=== PATIENT | female | born 2000 | race Caucasian/White ===

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

== ENCOUNTER 2020-03-07 17:27 | Outpatient (CLI) | payer MEDICAID ==
[~2020-03-07 17:27] MED LIST changes: +PREN1TAB60 PO
[2020-03-07 17:59] LABS: MICROSCOPIC INDICATED
== END 2020-03-07 18:35 | disposition home or self-care (01) ==
LOC: LDOP 17:27
PROVIDERS: ATTEND Obstetrics & Gynecology
DX: O26.892 Other specified pregnancy related conditions, second trimester (principal); R10.9 Unspecified abdominal pain; Z3A.25 25 weeks gestation of pregnancy
CPT/HCPCS: 81001; 87086; 99201; G0463

== ENCOUNTER 2020-04-06 02:05 | Outpatient (CLI) | payer MEDICAID | END 2020-04-06 02:39 | disposition home or self-care (01) | LOC: LDOP 02:05 | PROVIDERS: ATTEND Obstetrics & Gynecology | DX: O26.893 Other specified pregnancy related conditions, third trimester (principal); R25.2 Cramp and spasm; Z3A.29 29 weeks gestation of pregnancy | CPT/HCPCS: 59025 ==

== ENCOUNTER 2020-05-09 19:31 | Outpatient (CLI) | payer MEDICAID ==
[2020-05-09 19:44] VITALS: BP 98/61
[2020-05-09 20:28] LABS: MICROSCOPIC INDICATED
== END 2020-05-09 21:11 | disposition home or self-care (01) ==
LOC: LDOP 19:31
PROVIDERS: ATTEND Obstetrics & Gynecology
DX: O46.93 Antepartum hemorrhage, unspecified, third trimester (principal); Z3A.33 33 weeks gestation of pregnancy
CPT/HCPCS: 59025; 81001; 87086

== ENCOUNTER 2020-05-27 08:01 | Outpatient (CLI) | payer MEDICAID ==
[~2020-05-27] VITALS: Ht 162.6 cm; Wt 70.5 kg
[2020-05-27 08:18] VITALS: BP 112/59
[2020-05-27 08:38] LABS: MICROSCOPIC NOT IND
[2020-05-27 08:57] LABS: AMPHETAMINE SCREEN, URINE Negative (Negative); BARBITURATE SCREEN, URINE Negative (Negative); BENZODIAZEPINE SCREEN, URINE Negative (Negative); CANNABINOID SCREEN, URINE Negative (Negative); COCAINE SCREEN, URINE Negative (Negative); METHADONE SCREEN, URINE Negative (Negative); OPIATE SCREEN, URINE Negative (Negative)
== END 2020-05-27 09:12 | disposition home or self-care (01) ==
LOC: LDOP 08:01
PROVIDERS: ATTEND Obstetrics & Gynecology
DX: O26.893 Other specified pregnancy related conditions, third trimester (principal); R10.9 Unspecified abdominal pain; Z3A.36 36 weeks gestation of pregnancy
CPT/HCPCS: 59025; 80307; 81003; 87086

== ENCOUNTER 2020-06-16 07:36 | Inpatient (IN) | payer MEDICAID ==
[~2020-06-16] VITALS: Ht 162.6 cm; Wt 73.6 kg
[2020-06-16] MEDS ORDERED: TERBUTALINE 1 MG/ML, 1ML IVPush PRN (08:00)
[2020-06-16] MEDS ORDERED: CALCIUM CARBONATE 500 MG TAB.CHEW PO PRN (08:00)
[2020-06-16] MEDS ORDERED: TERBUTALINE 1 MG/ML, 1ML SQ PRN (08:00)
[2020-06-16] MEDS ORDERED: D5%-LACTATED RINGERS 1,000 ML IV SCH (08:00)
[2020-06-16] MEDS ORDERED: OXYTOCIN 30U/ 0.9% NaCL 500ML 500 ML IV PRN (08:00)
[2020-06-16] MEDS ORDERED: FENTANYL PF 100 MCG/2ML IV PRN (08:00)
[2020-06-16] MEDS ORDERED: ONDANSETRON 2MG/ML, 2ML IVPush PRN (08:00)
[2020-06-16] MEDS ORDERED: OXYTOCIN 30U/ 0.9% NaCL 500ML 500 ML IV ONE (08:00)
[2020-06-16] MEDS ORDERED: LIDOCAINE 1%, 20ML ONE (08:29)
[2020-06-16] MEDS ORDERED: NEWBORN KIT ONE (08:29)
[2020-06-16] MEDS ORDERED: OXYTOCIN 30U/ 0.9% NaCL 500ML 500 ML ONE (08:29)
[2020-06-16] MEDS ORDERED: MISOPROSTOL 200 MCG TABLET ONE (08:29)
[2020-06-16] MEDS ORDERED: PLEASE ENTER HEIGHT AND WEIGHT MC SCH ×2 (08:30→09:00)
[2020-06-16 08:31] LABS: MICROSCOPIC INDICATED
[2020-06-16 08:39] LABS: AMPHETAMINE SCREEN, URINE Negative (Negative); BARBITURATE SCREEN, URINE Negative (Negative); BENZODIAZEPINE SCREEN, URINE Negative (Negative); CANNABINOID SCREEN, URINE Negative (Negative); COCAINE SCREEN, URINE Negative (Negative); METHADONE SCREEN, URINE Negative (Negative); OPIATE SCREEN, URINE Negative (Negative)
[2020-06-16 08:43] LABS: BASOPHILS % (AUTO) 1 % (0-1); EOSINOPHILS % (AUTO) 0 % (1-7); LYMPHOCYTES % (AUTO) 23 % (22-44); MEAN CORPUSCULAR HEMOGLOBIN 29.6 pg (27.0-34.8); MEAN CORPUSCULAR HGB CONC 34.8 g/dL (32.4-35.8); MEAN PLATELET VOLUME 8.6 fL (7.4-10.4); MONOCYTES % (AUTO) 7 % (2-9); NEUTROPHILS % (AUTO) 70 % (42-75); PLATELET COUNT 261 x10^3/uL (130-400); RED BLOOD COUNT 3.14 x10^6/uL (3.82-5.3); RED CELL DISTRIBUTION WIDTH 13.5 % (9.6-15.2)
[2020-06-16 08:45] LABS: MD NO
[2020-06-16 08:53] LABS: ALANINE AMINOTRANSFERASE 16 U/L (12-78); ALBUMIN 2.6 g/dL (3.4-5.0); ANION GAP 9 mmol/L (5-15); CALCIUM 8.5 mg/dL (8.5-10.1); CHLORIDE 110 mmol/L (98-107); CREATININE 0.57 mg/dL (0.55-1.02)
[2020-06-16 08:56] LABS: ALKALINE PHOSPHATASE 160 U/L (45-117); BILIRUBIN,TOTAL 0.3 mg/dL (0.2-1.0); TOTAL PROTEIN 6.4 g/dL (6.4-8.2)
[2020-06-16] MEDS ORDERED: MISOPROSTOL 25 MCG TABLET ONE ×2 (09:34→13:30)
[2020-06-16] MEDS: MISOPROSTOL 25 MCG TABLET VG PRN ×2 (09:38→13:35)
[2020-06-16] MEDS: LACTATED RINGERS 1,000 ML IV SCH ×2 (09:43→11:08)
[2020-06-16] MEDS ORDERED: FENTANYL PF 100 MCG/2ML ONE (14:44)
[2020-06-16] MEDS: FENTANYL PF 100 MCG/2ML IVPush PRN (14:46)
[2020-06-16] MEDS ORDERED: FENTANYL/BUPIV./NS/PF 250 ML EPIDCONT ONE (18:01)
[2020-06-16] MEDS ORDERED: BUPIVACAINE 0.25% ONE (18:01)
[2020-06-16] MEDS ORDERED: LACTATED RINGERS 1,000 ML IVBOLUS PRN (18:30)
[2020-06-16] MEDS ORDERED: FENTANYL/BUPIV./NS/PF 250 ML EPIDCONT SCH (18:30)
[2020-06-16] MEDS ORDERED: EPHEDRINE 50 MG/ML, 1ML IVPush PRN (18:30)
[2020-06-16] MEDS ORDERED: LACTATED RINGERS 1,000 ML IV SCH (18:30)
[2020-06-17] MEDS: FENTANYL PF 100 MCG/2ML IVPush PRN (01:14)
[2020-06-17] MEDS ORDERED: FENTANYL PF 100 MCG/2ML ONE (01:14)
[2020-06-17] MEDS ORDERED: TRANEXAMIC ACID 100 MG/ML, 10ML IV ONE (02:00)
[2020-06-17] MEDS ORDERED: RHOGAM FROM BLOOD BANK 1 NOTE EA IM/IV ONE (02:00)
[2020-06-17] MEDS ORDERED: DIPH,PERTUSS(ACELL),TET VAC/PF NC IM-VACC PRN (02:00)
[2020-06-17] MEDS ORDERED: OXYTOCIN 10 UNITS/ML, 1ML IM PRN (02:00)
[2020-06-17] MEDS ORDERED: SIMETHICONE 80 MG CHEW TAB PO PRN (02:00)
[2020-06-17] MEDS ORDERED: ACETAMINOPHEN 325 MG TABLET PO PRN (02:00)
[2020-06-17] MEDS ORDERED: OXYcodone/APAP 5/325MG TABLET PO PRN (02:00)
[2020-06-17] MEDS ORDERED: MISOPROSTOL 200 MCG TABLET PR PRN (02:00)
[2020-06-17] MEDS ORDERED: METHYLERGONOVINE 0.2 MG/ML IM PRN (02:00)
[2020-06-17] MEDS ORDERED: DOCUSATE 100 MG CAPSULE PO PRN (02:00)
[2020-06-17] MEDS ORDERED: ONDANSETRON 2MG/ML, 2ML IV PRN (02:00)
[2020-06-17] MEDS: OXYTOCIN 30U/ 0.9% NaCL 500ML 500 ML IV SCH ×4 (03:26→06:18)
[2020-06-17 03:45] VITALS: BP 112/67
[2020-06-17] MEDS: IBUPROFEN 600 MG TABLET PO PRN ×3 (06:20→19:58)
[2020-06-17 07:47] VITALS: BP 107/67
[2020-06-17] MEDS: OXYcodone/APAP 5/325MG TABLET PO PRN ×4 (08:14→22:18)
[2020-06-17] MEDS: PRENATAL VIT/IRON/FA 1 EACH TABLET PO SCH (08:14)
[2020-06-17 09:57] LABS: BASOPHILS % (AUTO) 0 % (0-1); EOSINOPHILS % (AUTO) 0 % (1-7); LYMPHOCYTES % (AUTO) 13 % (22-44); MEAN CORPUSCULAR HGB CONC 34.1 g/dL (32.4-35.8); MEAN PLATELET VOLUME 8.8 fL (7.4-10.4); MONOCYTES % (AUTO) 8 % (2-9); NEUTROPHILS % (AUTO) 79 % (42-75); PLATELET COUNT 191 x10^3/uL (130-400); RED CELL DISTRIBUTION WIDTH 13.7 % (9.6-15.2)
[2020-06-17 09:58] LABS: MD NO
[2020-06-17 11:42] VITALS: BP 104/65
[2020-06-17 16:41] VITALS: BP 111/70
[2020-06-17 21:00] VITALS: BP 100/57
[2020-06-18] MEDS: OXYcodone/APAP 5/325MG TABLET PO PRN ×2 (04:56→10:39)
[2020-06-18] MEDS: IBUPROFEN 600 MG TABLET PO PRN ×2 (04:57→12:31)
[2020-06-18 08:30] VITALS: BP 109/71
[2020-06-18] MEDS: PRENATAL VIT/IRON/FA 1 EACH TABLET PO SCH (08:40)
[2020-06-18] MEDS ORDERED: ibuprofen (08:59)
== END 2020-06-18 12:35 | disposition home or self-care (01) | DRG 807 ==
LOC: LDIP 07:47 → 2NW 06-17 03:35
PROVIDERS: ADMIT Obstetrics & Gynecology; ATTEND Obstetrics & Gynecology
PROC: 10E0XZZ Delivery of Products of Conception, External Approach (ICD-10-PCS; principal; 2020-06-17)
PROC: 3E0R3BZ Introduction of Anesthetic Agent into Spinal Canal, Percutaneous Approach (ICD-10-PCS; 2020-06-17)
PROC: 00HU33Z Insertion of Infusion Device into Spinal Canal, Percutaneous Approach (ICD-10-PCS; 2020-06-17)
DX: O69.81X0 Labor and delivery complicated by cord around neck, without compression, not applicable or unspecified (principal); Z37.0 Single live birth; Z3A.39 39 weeks gestation of pregnancy; Z20.822 Contact with and (suspected) exposure to COVID-19; Z83.3 Family history of diabetes mellitus; Z82.3 Family history of stroke; Z80.3 Family history of malignant neoplasm of breast; Z83.6 Family history of other diseases of the respiratory system
CPT/HCPCS: 36415; 80053; 80307; 81001; 85025; 86592; 86762; 86803; 86850; 86900; 87086; 87340; 87635; 87806; G0378; J3010; G0475; J2590; J7120

== ENCOUNTER 2020-07-26 22:14 | Emergency (ER) | payer MEDICAID ==
[~2020-07-26] VITALS: Ht 162.6 cm; Wt 65.0 kg
[~2020-07-26 22:14] MED LIST changes: +ibuprofen
--- NOTE | 2020-07-26 22:27 | NUR ---
Orthostats at triage/ became lightheaded with position changes sittin 96/46 stand: 71 99/60
[2020-07-26 22:50] LABS: BASOPHILS % (AUTO) 1 % (0-1); EOSINOPHILS % (AUTO) 1 % (1-7); LYMPHOCYTES % (AUTO) 44 % (22-44); MEAN CORPUSCULAR HEMOGLOBIN 28.2 pg (27.0-34.8); MEAN CORPUSCULAR HGB CONC 33.4 g/dL (32.4-35.8); MEAN PLATELET VOLUME 8.5 fL (7.4-10.4); MONOCYTES % (AUTO) 7 % (2-9); NEUTROPHILS % (AUTO) 47 % (42-75); PLATELET COUNT 275 x10^3/uL (130-400); RED BLOOD COUNT 4.11 x10^6/uL (3.82-5.3); RED CELL DISTRIBUTION WIDTH 15.3 % (9.6-15.2)
[2020-07-26 22:52] LABS: MD NO
--- NOTE | 2020-07-26 22:54 | NUR ---
pt resting in gurney, denies lightheadedness or dizziness at this time, piv started, fluids running, labs drawn, pelvic set up for erp, pt on monitors, at bedside
[2020-07-26] MEDS ORDERED: SODIUM CHLORIDE FLUSH 10ML SYR IVF ONE (23:00)
[2020-07-26] MEDS ORDERED: SODIUM CHLORIDE 0.9% 1,000ML IVBOLUS ONE (23:00)
[2020-07-26 23:01] LABS: ALBUMIN 3.9 g/dL (3.4-5.0); ANION GAP 5 mmol/L (5-15); CALCIUM 8.6 mg/dL (8.5-10.1); CHLORIDE 110 mmol/L (98-107); CREATININE 0.71 mg/dL (0.55-1.02)
[2020-07-27 00:43] VITALS: BP 93/58
--- NOTE | 2020-07-27 00:43 | NUR ---
Patient given discharge instructions and they have confirmed that they understand the instructions. Patient ambulatory with steady gait.
== END 2020-07-27 00:46 ==
LOC: ED 22:44
DX: N92.4 Excessive bleeding in the premenopausal period (principal); N93.9 Abnormal uterine and vaginal bleeding, unspecified; R10.2 Pelvic and perineal pain
CPT/HCPCS: 36415; 80048; 82040; 84702; 85025; 86901; 96360; 99283; J7030

== ENCOUNTER 2020-09-06 18:16 | Emergency (ER) | payer MEDICAID ==
[~2020-09-06] VITALS: Ht 162.6 cm; Wt 64.9 kg
[2020-09-06 19:27] LABS: BASOPHILS % (AUTO) 1 % (0-1); EOSINOPHILS % (AUTO) 1 % (1-7); LYMPHOCYTES % (AUTO) 25 % (22-44); MD NO; MEAN CORPUSCULAR HEMOGLOBIN 28.3 pg (27.0-34.8); MEAN CORPUSCULAR HGB CONC 33.3 g/dL (32.4-35.8); MEAN PLATELET VOLUME 8.7 fL (7.4-10.4); MONOCYTES % (AUTO) 7 % (2-9); NEUTROPHILS % (AUTO) 67 % (42-75); PLATELET COUNT 271 x10^3/uL (130-400); RED BLOOD COUNT 4.38 x10^6/uL (3.82-5.3); RED CELL DISTRIBUTION WIDTH 15.2 % (9.6-15.2)
[2020-09-06 19:35] LABS: ALANINE AMINOTRANSFERASE 37 U/L (12-78); ALBUMIN 3.7 g/dL (3.4-5.0); ANION GAP 5 mmol/L (5-15); CALCIUM 8.4 mg/dL (8.5-10.1); CHLORIDE 110 mmol/L (98-107); CREATININE 0.65 mg/dL (0.55-1.02)
--- NOTE | 2020-09-06 19:38 | NUR ---
PT TO ROOM 11 W/ C/O CHANDLER, MID ABD PAIN, N/V/D, CHILLS X 2 DAYS. PT STATES SHE THOUGHT IT WAS RELATED TO HER DINNER. PT DENIES ANY ABD HX/SURGERIES. PT RESTING ON GURNEY. NADN. MONITORS APPLIED. VSS. WARM BLANKET PROVIDED.
[2020-09-06 19:40] LABS: ALKALINE PHOSPHATASE 71 U/L (45-117); BILIRUBIN,TOTAL 0.3 mg/dL (0.2-1.0)
[2020-09-06] MEDS ORDERED: KETOROLAC 30 MG/1 ML ONE (19:56)
[2020-09-06] MEDS ORDERED: ONDANSETRON ODT 4 MG ONE (19:56)
[2020-09-06] MEDS ORDERED: KETOROLAC 30 MG/1 ML IM ONE (20:00)
[2020-09-06] MEDS ORDERED: ONDANSETRON ODT 4 MG PO ONE (20:00)
[2020-09-06 20:15] LABS: MICROSCOPIC INDICATED
--- NOTE | 2020-09-06 20:31 | NUR ---
PT CHART REVIEWED AND PLACED FOR RECHECK.
[2020-09-06 20:32] VITALS: BP 101/56
--- NOTE | 2020-09-06 20:32 | NUR ---
PT RESTING ON GURNEY. NADN. RIBEIRO.
== END 2020-09-06 21:00 | disposition home or self-care (01) ==
LOC: ED 20:41
DX: K52.9 Noninfective gastroenteritis and colitis, unspecified (principal); R10.33 Periumbilical pain; R11.2 Nausea with vomiting, unspecified; F17.210 Nicotine dependence, cigarettes, uncomplicated; Z72.9 Problem related to lifestyle, unspecified
CPT/HCPCS: 36415; 76700; 80053; 81001; 83690; 84703; 85025; 96372; 99284; 99406; J1885; Q0162